=== PATIENT | male | born 1965 | race Two or more races ===

== ENCOUNTER 2018-01-02 15:17 | Inpatient (IN) | payer MEDICAID ==
[~2018-01-02] VITALS: Ht 170.2 cm; Wt 87.0 kg
[~2018-01-02 15:17] MED LIST: ATOR20TA50 PO; HYDR25TA4 PO; LISI10TA6 PO; MET25T PO; NORPTMEDS
[2018-01-02 16:40] LABS: Basophils # (auto) 0.3 uL; Basophils % (auto) 3.3 % (0.0-2.0); Eosinophils # (auto) 0.1 uL; Eosinophils % (auto) 1.2 % (0.0-7.0); Hematocrit 43.8 % (41.0-53.0); Hemoglobin 14.5 g/dL (13.5-17.5); Lymphocytes # (auto) 1.1 uL; Lymphocytes % (auto) 13.9 % (10.0-50.0); Mean Corpuscular Hgb Conc. 33.1 g/dL (32.0-36.0); Mean Corpuscular Volume 87.7 fL (80.0-100.0); Monocytes # (auto) 0.9 uL; Monocytes % (auto) 12.4 % (0.0-12.0); Neutrophils # (auto) 5.3 uL; Neutrophils % (auto) 69.2 % (37.0-80.0); Nucleated Red Blood Cells % 0.1 %; Platelet Count (auto) 251 10^3/uL (140-450); Red Blood Cells 4.99 10^6/uL (4.5-5.90); Red Cell Distribution Width 15.2 % (11.8-14.3); White Blood Cell 7.6 10^3/uL (4.4-10.8)
[2018-01-02 17:02] LABS: Albumin 3.2 g/dL (3.4-5.0); BUN/Creatinine Ratio 15.4; Bilirubin, Total 0.4 mg/dL (0.2-1.0); Calcium 8.7 mg/dL (8.5-10.1); Potassium 4.5 mmol/L (3.5-5.1); Total Protein 7.2 g/dL (6.4-8.2)
[2018-01-03] MEDS ORDERED: FUROSEMIDE 20 MG/2 ML VIAL IV ONE (00:45)
[2018-01-03 01:32] LABS: INR 1.02 (0.9-1.15); Partial Thromboplastin Time 25.7 sec (22.64-33.71); Prothrombin Time 11.1 sec (9.37-12.3)
[2018-01-03] MEDS ORDERED: ONDANSETRON HCL 4 MG/2 ML VIAL IV PRN (02:00)
[2018-01-03] MEDS ORDERED: NITROGLYCERIN 0.4 MG SL TAB SL PRN (02:00)
[2018-01-03] MEDS ORDERED: ACETAMINOPHEN 500 MG TAB PO PRN (02:00)
[2018-01-03] MEDS ORDERED: MORPHINE SULFATE 4 MG/ML SYR/VIAL IV PRN (02:00)
[2018-01-03] MEDS ORDERED: HYDROcodone-ACET 5/325MG TAB PO PRN (02:00)
[2018-01-03 06:37] LABS: Basophils # (auto) 0.1 uL; Basophils % (auto) 2.1 % (0.0-2.0); Eosinophils # (auto) 0.1 uL; Eosinophils % (auto) 1.3 % (0.0-7.0); Hematocrit 45.2 % (41.0-53.0); Hemoglobin 14.8 g/dL (13.5-17.5); Lymphocytes # (auto) 1.5 uL; Lymphocytes % (auto) 22.5 % (10.0-50.0); Mean Corpuscular Hgb Conc. 32.8 g/dL (32.0-36.0); Mean Corpuscular Volume 88.4 fL (80.0-100.0); Monocytes # (auto) 0.7 uL; Monocytes % (auto) 9.8 % (0.0-12.0); Neutrophils # (auto) 4.4 uL; Neutrophils % (auto) 64.3 % (37.0-80.0); Nucleated Red Blood Cells % 0.1 %; Platelet Count (auto) 217 10^3/uL (140-450); Red Blood Cells 5.12 10^6/uL (4.5-5.90); Red Cell Distribution Width 15.1 % (11.8-14.3); White Blood Cell 6.8 10^3/uL (4.4-10.8)
[2018-01-03 06:58] LABS: BUN/Creatinine Ratio 19.8; Calcium 8.9 mg/dL (8.5-10.1); Potassium 4.2 mmol/L (3.5-5.1)
[2018-01-03 08:32] LABS: Urine Bacteria None Seen /hpf (None Seen)
[2018-01-03 09:00] LABS: Urine Blood Normal /uL (Negative); Urine Specific Gravity 1.008 (1.001-1.035)
[2018-01-03] MEDS ORDERED: BUMETANIDE (0.25MG/ML) 4 ML VIAL IV ONE (09:15)
[2018-01-03 09:16] LABS: Urine WBC 0 /hpf (0 - 3)
[2018-01-03] MEDS: FUROSEMIDE 20 MG TAB PO SCH (09:56)
[2018-01-03] MEDS: METOPROLOL TARTRATE 25 MG TAB PO SCH ×2 (09:57→22:20)
[2018-01-03] MEDS: LISINOPRIL 10 MG TAB PO SCH (09:58)
[2018-01-03 13:00] VITALS: BP 152/93
[2018-01-03 17:56] VITALS: BP 154/93
[2018-01-03 20:00] VITALS: BP 151/99
[2018-01-03 22:00] VITALS: BP 151/99
[2018-01-03] MEDS: ATORVASTATIN 20 MG TAB PO SCH (22:18)
[2018-01-04] MEDS ORDERED: ZOLPIDEM TARTRATE 5 MG TAB PO ONE ×2 (01:30→23:40)
[2018-01-04 05:00] VITALS: BP 155/109
[2018-01-04] MEDS: FUROSEMIDE 20 MG TAB PO SCH (08:00)
[2018-01-04] MEDS: LISINOPRIL 10 MG TAB PO SCH (08:00)
[2018-01-04] MEDS: METOPROLOL TARTRATE 25 MG TAB PO SCH ×2 (08:01→22:14)
[2018-01-04 08:13] VITALS: BP 140/103
[2018-01-04] MEDS ORDERED: IODIXANOL 320MG/ML 100ML BTL IV ONE (08:33)
[2018-01-04] MEDS ORDERED: LIDOCAINE 2%HCL (LOCAL ANESTH.) INJ 20ML MDV ONE (08:34)
[2018-01-04] MEDS ORDERED: fentaNYL CITRATE 100 MCG/2 ML VL ONE (08:41)
[2018-01-04] MEDS ORDERED: VERAPAMIL 2.5MG/ML INJ 2ML VIAL IV ONE (08:41)
[2018-01-04] MEDS ORDERED: EPTIFIBATIDE INJ (2MG/ML) 10ML VIAL IV ONE (08:42)
[2018-01-04] MEDS ORDERED: MIDAZOLAM HCL 1MG/1ML-2 ML VIAL ONE (08:42)
[2018-01-04] MEDS ORDERED: IOHEXOL 350 MG/ML 100ML IJ ONE (08:42)
[2018-01-04] MEDS ORDERED: SODIUM CHL 0.9% 50 ML ONE (08:55)
[2018-01-04] MEDS ORDERED: ANGIOMAX 250 MG VIAL IV ONE (08:57)
[2018-01-04 09:00] VITALS: BP 140/103
[2018-01-04] MEDS ORDERED: PRASUGREL HCL 10 MG TAB ONE (09:00)
[2018-01-04] MEDS ORDERED: ASPirin 325 MG TAB ONE (09:00)
[2018-01-04 13:00] VITALS: BP 136/101
[2018-01-04 17:05] VITALS: BP 129/80
[2018-01-04 22:00] VITALS: BP 140/96
[2018-01-04] MEDS: ATORVASTATIN 20 MG TAB PO SCH (22:15)
[2018-01-05 05:30] VITALS: BP 124/86
[2018-01-05] MEDS ORDERED: CLOPIDOGREL 300 MG TAB PO ONE (06:00)
[2018-01-05] MEDS ORDERED: CLOPIDOGREL BISULFATE 75 MG TAB ONE (06:43)
[2018-01-05 08:00] VITALS: BP 138/96
[2018-01-05 09:03] VITALS: BP 138/96
[2018-01-05] MEDS: METOPROLOL TARTRATE 25 MG TAB PO SCH (09:37)
[2018-01-05] MEDS: LISINOPRIL 10 MG TAB PO SCH (09:37)
[2018-01-05] MEDS: FUROSEMIDE 20 MG TAB PO SCH (09:37)
[2018-01-05] MEDS ORDERED: ASPirin 81 mg TAB PO SCH (10:00)
[2018-01-05 10:54] VITALS: BP 138/96
[2018-01-06] MEDS ORDERED: CLOPIDOGREL BISULFATE 75 MG TAB PO SCH (10:00)
== END 2018-01-05 11:35 | disposition home or self-care (01) | DRG 175 ==
LOC: ER 15:18 → TELE 15:19 → TELE-WESTW 01-03 08:44
PROVIDERS: ADMIT Internal Medicine; ATTEND Internal Medicine
PROC: 027034Z Dilation of Coronary Artery, One Artery with Drug-eluting Intraluminal Device, Percutaneous Approach (ICD-10-PCS; principal; 2018-01-04)
PROC: 4A023N7 Measurement of Cardiac Sampling and Pressure, Left Heart, Percutaneous Approach (ICD-10-PCS; 2018-01-04)
PROC: B2111ZZ Fluoroscopy of Multiple Coronary Arteries using Low Osmolar Contrast (ICD-10-PCS; 2018-01-04)
DX: I11.0 Hypertensive heart disease with heart failure (principal); I21.4 Non-ST elevation (NSTEMI) myocardial infarction; I42.9 Cardiomyopathy, unspecified; I50.43 Acute on chronic combined systolic (congestive) and diastolic (congestive) heart failure; N28.9 Disorder of kidney and ureter, unspecified; E78.5 Hyperlipidemia, unspecified; I25.10 Atherosclerotic heart disease of native coronary artery without angina pectoris; M10.9 Gout, unspecified; I73.9 Peripheral vascular disease, unspecified; I49.9 Cardiac arrhythmia, unspecified; Z79.899 Other long term (current) drug therapy; Z79.1 Long term (current) use of non-steroidal anti-inflammatories (NSAID); Z79.2 Long term (current) use of antibiotics
CPT/HCPCS: 36415; 71046; 80048; 80053; 81001; 83880; 84484; 85025; 85379; 85610; 85730; 86850; 86900; 86901; 87081; 92928; 93005; 93458; 96374; 99152; C1874; J2250; Q9967

== ENCOUNTER 2019-01-13 08:07 | Emergency (ER) | payer MEDICAID ==
[~2019-01-13] VITALS: Ht 170.2 cm; Wt 95.3 kg
[~2019-01-13 08:07] MED LIST changes: +ASP81EC PO; +CLOP75TA41 PO; +FURO20TA PO; +LEVO500T21 PO; -LISI10TA6 PO; +LISI2.5T47 PO; -NORPTMEDS
[2019-01-13 08:56] LABS: Basophils # (auto) 0 uL; Basophils % (auto) 0.6 % (0.0-2.0); Eosinophils # (auto) 0.1 uL; Eosinophils % (auto) 1.2 % (0.0-7.0); Hematocrit 40.6 % (41.0-53.0); Lymphocytes % (auto) 15.4 % (10.0-50.0); Mean Corpuscular Hemoglobin 28.7 pg (28.0-32.0); Mean Corpuscular Hgb Conc. 32.2 g/dL (32.0-36.0); Mean Corpuscular Volume 89.1 fL (80.0-100.0); Monocytes # (auto) 0.6 uL; Monocytes % (auto) 8.9 % (0.0-12.0); Neutrophils % (auto) 73.9 % (37.0-80.0); Nucleated Red Blood Cells % 0.2 %; Platelet Count (auto) 230 10^3/uL (140-450); Red Blood Cells 4.55 10^6/uL (4.5-5.90); Red Cell Distribution Width 15.4 % (11.8-14.3); White Blood Cell 6.8 10^3/uL (4.4-10.8)
[2019-01-13] MEDS ORDERED: cloNIDine HCL 0.1 MG TAB PO ONE (09:00)
[2019-01-13 09:02] LABS: Albumin 3.2 g/dL (3.4-5.0); BUN/Creatinine Ratio 20.6; Calcium 8.9 mg/dL (8.5-10.1); Potassium 4.7 mmol/L (3.5-5.1)
[2019-01-13 09:07] LABS: Bilirubin, Total 0.5 mg/dL (0.2-1.0); Total Protein 7.2 g/dL (6.4-8.2)
[2019-01-13 09:59] LABS: Alcohol, Urine < 3.0 mg/dL (0-5); Amphetamine Screen, Urine NEGATIVE (NEGATIVE); Barbiturate Scree,Urine NEGATIVE (NEGATIVE); Benzodiazephine Screen, Urine NEGATIVE (NEGATIVE); Cannabinoid Screen, Urine NEGATIVE (NEGATIVE); Cocaine Screen, Urine NEGATIVE (NEGATIVE); Opiate Scree,Urine NEGATIVE (NEGATIVE); Phencyclidine Screen, Urine NEGATIVE (NEGATIVE)
[2019-01-13 10:00] LABS: Urine Bacteria NONE SEEN /hpf (None Seen); Urine Blood Negative /uL (Negative); Urine Specific Gravity 1.014 (1.001-1.035); Urine WBC 1 /hpf (0 - 3)
[2019-01-13] MEDS ORDERED: amLODIPine BESYLATE 5 MG TAB PO ONE (10:45)
[2019-01-13] MEDS ORDERED: FUROSEMIDE 20 MG/2 ML VIAL IV ONE (10:45)
[2019-01-13 12:26] VITALS: BP 142/82
== END 2019-01-13 12:59 | disposition home or self-care (01) ==
LOC: ER 08:12
DX: I11.0 Hypertensive heart disease with heart failure (principal); R10.84 Generalized abdominal pain; R11.2 Nausea with vomiting, unspecified; K59.00 Constipation, unspecified; I50.9 Heart failure, unspecified; I25.2 Old myocardial infarction; Z98.61 Coronary angioplasty status; Z79.2 Long term (current) use of antibiotics; Z79.82 Long term (current) use of aspirin
CPT/HCPCS: 36415; 71046; 80053; 80307; 81001; 83735; 83880; 84484; 85025; 94761; 96374; 99284; J1940

== ENCOUNTER 2019-01-14 17:14 | Inpatient (IN) | payer MEDICAID ==
[2019-01-14] VITALS (8 sets, daily range): BP systolic 121–136; BP diastolic 83–97
[~2019-01-14] VITALS: Ht 170.2 cm; Wt 95.4 kg
[2019-01-14 17:57] LABS: Basophils # (auto) 0.1 uL; Basophils % (auto) 0.7 % (0.0-2.0); Eosinophils # (auto) 0.1 uL; Eosinophils % (auto) 1.3 % (0.0-7.0); Hematocrit 40.1 % (41.0-53.0); Hemoglobin 13.1 g/dL (13.5-17.5); Lymphocytes # (auto) 1.1 uL; Lymphocytes % (auto) 12.7 % (10.0-50.0); Mean Corpuscular Hemoglobin 28.8 pg (28.0-32.0); Mean Corpuscular Hgb Conc. 32.6 g/dL (32.0-36.0); Mean Corpuscular Volume 88.3 fL (80.0-100.0); Monocytes # (auto) 0.9 uL; Monocytes % (auto) 10.5 % (0.0-12.0); Neutrophils # (auto) 6.3 uL; Neutrophils % (auto) 74.8 % (37.0-80.0); Nucleated Red Blood Cells % 0.2 %; Platelet Count (auto) 221 10^3/uL (140-450); Red Blood Cells 4.55 10^6/uL (4.5-5.90); Red Cell Distribution Width 15.4 % (11.8-14.3); White Blood Cell 8.4 10^3/uL (4.4-10.8)
[2019-01-14 18:14] LABS: Albumin 3.1 g/dL (3.4-5.0); Calcium 8.4 mg/dL (8.5-10.1); Potassium 4.7 mmol/L (3.5-5.1)
[2019-01-14 18:35] LABS: Bilirubin, Total 0.5 mg/dL (0.2-1.0); Total Protein 7.2 g/dL (6.4-8.2)
[2019-01-14] MEDS ORDERED: SODIUM CHLORIDE 0.9% 1,000 ML IV ONE ×2 (19:12→19:30)
[2019-01-14] MEDS ORDERED: ASPirin 81 mg TAB PO ONE ×2 (19:15→19:30)
[2019-01-14] MEDS ORDERED: MORPHINE SULFATE 4 MG/ML SYR/VIAL IV ONE ×2 (19:15→19:30)
[2019-01-14] MEDS ORDERED: ONDANSETRON HCL 4 MG/2 ML VIAL IV ONE (19:30)
[2019-01-14] MEDS ORDERED: NITROGLYCERIN 0.4 MG SL TAB SL ONE (19:30)
[2019-01-14] MEDS ORDERED: HEPARIN IN NS 1000U/500ML (2UNIT/ML) 500 ML BAG/KIT IV ONE (19:45)
[2019-01-14] MEDS ORDERED: HEPARIN SODIUM (PORCINE) 5000 UNITS/ML 1ML VIAL IV ONE (20:00)
[2019-01-14] MEDS ORDERED: ANGIOMAX 250 MG VIAL IV ONE (20:36)
[2019-01-14] MEDS ORDERED: MIDAZOLAM HCL 1MG/1ML-2 ML VIAL ONE (20:36)
[2019-01-14] MEDS ORDERED: SODIUM CHL 0.9% 50 ML ONE (20:36)
[2019-01-14] MEDS ORDERED: fentaNYL CITRATE 100 MCG/2 ML VL ONE (20:36)
[2019-01-14] MEDS ORDERED: IODIXANOL 320MG/ML 100ML BTL IV ONE (20:37)
[2019-01-14] MEDS ORDERED: LIDOCAINE 2%HCL (LOCAL ANESTH.) INJ 20ML MDV ONE (20:37)
[2019-01-14] MEDS ORDERED: ATROPINE SULFATE 1 MG/1 ML VIAL ONE (21:21)
[2019-01-14 21:23] LABS: INR 0.97 (0.9-1.15); Prothrombin Time 10.4 sec (9.27-12.13)
[2019-01-14] MEDS ORDERED: EPTIFIBATIDE INJ (2MG/ML) 10ML VIAL IV ONE (21:37)
[2019-01-14 21:45] LABS: Urine Bacteria NONE SEEN /hpf (None Seen); Urine Blood Negative /uL (Negative); Urine Specific Gravity 1.017 (1.001-1.035); Urine WBC <1 /hpf (0 - 3)
[2019-01-14] MEDS ORDERED: TICAGRELOR 90 MG TAB ONE (21:45)
[2019-01-14] MEDS ORDERED: ATORVASTATIN 20 MG TAB PO ONE (22:15)
[2019-01-14] MEDS ORDERED: NITROGLYCERIN 0.4 MG SL TAB SL PRN (22:15)
[2019-01-14] MEDS ORDERED: MORPHINE SULF INJ 2 MG/ML SYRINGE 1ML IV PRN ×2 (22:15)
[2019-01-14 22:45] LABS: Alcohol, Urine < 3.0 mg/dL (0-5); Amphetamine Screen, Urine NEGATIVE (NEGATIVE); Barbiturate Scree,Urine NEGATIVE (NEGATIVE); Benzodiazephine Screen, Urine NEGATIVE (NEGATIVE); Cannabinoid Screen, Urine NEGATIVE (NEGATIVE); Cocaine Screen, Urine NEGATIVE (NEGATIVE); Opiate Scree,Urine POSITIVE (NEGATIVE); Phencyclidine Screen, Urine NEGATIVE (NEGATIVE)
[2019-01-14] MEDS ORDERED: FUROSEMIDE 20 MG/2 ML VIAL IV ONE (23:00)
--- NOTE | 2019-01-14 23:05 | NUR ---
ARRIVAL NOTE PT ARRIVED TO ICU AT 2210. PT PLACED IN ROOM 106. PT ARRIVED FROM FORKLIFT DRIVER. PT ABLE TO STATE NAME, , PLACE OF RESIDENCE. PT DROWSY AT THIS TIME. VS OR ARRIVAL, TEMP 98.3, HR 90, RR 22, 95% O2, BP 135/97. ANGIO SEAL SITE SOFT TO TOUCH, NO BLEEDING NOTED. PT INSTRUCTED TO KEEP LEG STRAIGHT AT THIS TIME. PT ARRIVED WITH LFT HAND 20 GAUGE, RT AC 20 GAUGE. BOTH IV SITES BENIGN. PT PLACED ON 2 LTS NC. PT PLACED IN REVERSE [place] PER ASPIRATION PRECAUTIONS. PT DENIES PAIN AT THIS TIME. WILL MONITOR PT CAREFULLY. Addendum: 01/14/19 at 2334 by SILVINA BOWMAN RN PT HAS PITTING EDEMA 1+ ON LOWER EXTREMITIES
--- NOTE | 2019-01-14 23:11 | NUR ---
PT'S BROTHER, ERIC, CALLED AT THIS TIME REQUESTING UPDATE ON PT STATUS. PER PT TELL ANYONE THAT CALLS THAT HE IS DOING OK BUT DO NOT GIVE OUT ANY INFORMATION. PT WILL CALL FAMILY TOMORROW. PT DOES NOT WANT TO MAKE A PASSWORD AT THIS TIME.
[2019-01-15] VITALS (31 sets, daily range): BP systolic 111–168; BP diastolic 76–124
--- NOTE | 2019-01-15 01:57 | NUR ---
PERSONAL AFFECTS PT ARRIVED TO UNIT WITH JACKET AND TWO PLASTIC BAGS. IN THE BAGS ARE A CELL PHONE WITH CLAIM EXAMINER AND EAR BUDS. 1 PAIR OF SHOES, 2 SOCKS, SHORTS WITH A BELT. BOXERS, SHIRT. PAPERWORK AND 3$ IN POCKET OF JACKET.
--- NOTE | 2019-01-15 03:12 | NUR ---
PT REMAINS SUPINE IN RE[place]SE [place] POSITION X6 HOURS POST SKILLS TRAINER. ANGIO SEAL SITE REMAINS BENIGN AND SOFT. NO BLEEDING NOTED.
--- NOTE | 2019-01-15 04:10 | NUR ---
PT ASSISTED TO BEDSIDE COMMODE. PT HAD LARGE BM. PT RETURNED TO BED AND HOOKED UP TO ICU MONITOR. PT TOLERATED WELL. VSS.
--- NOTE | 2019-01-15 07:45 | NUR ---
ASSESS- PT. LYING IN BED WITH EYES CLOSED, AROUSABLE TO NAME. ALERT AND ORIENTED TIMES FOUR. DENIES ANY PAIN OR DISCOMFORT. NO C/P. RT. GROIN WITH ANGIOSEAL INTACT, NO HEMATOMA, NO BRUISING, NO BLEEDING. LUNGS CLEAR RAMIREZ. INSPIRATORY AND EXPIRATORY. NO SOB. O2 2L N/C. RADIAL PULSES STRONG, PALPABLE RAMIREZ. PEDAL PULSES STRONG, PALPABLE RAMIREZ. 1 PLUS EDEMA ANKLES RAMIREZ. ABD. SOFT, FLAT, NON-TENDER. BOWEL SOUNDS ALL FOUR QUADRANTS. NO N/V. VOIDS VIA URINAL CLEAR YELLOW URINAL WITHOUT DIFFICULTY.
[2019-01-15] MEDS ORDERED: CLOPIDOGREL BISULFATE 75 MG TAB PO ONE (09:00)
--- NOTE | 2019-01-15 09:30 | NUR ---
PT. ASSISTED TO TOILET. STEADY GAIT. PT. STATED HE HAD BM. SAT UP IN CHAIR FOR 15-20 MIN. THEN WANTED TO GO BACK TO BED. TOLERATED WELL.
[2019-01-15] MEDS ORDERED: NITROGLYCERIN 0.4 MG SL TAB SL ONE (10:00)
[2019-01-15] MEDS ORDERED: ASPirin 81 mg TAB PO ONE (10:00)
--- NOTE | 2019-01-15 10:00 | NUR ---
VISITORS AT THE .
--- NOTE | 2019-01-15 11:40 | NUR ---
DR. SETHI Provider/Hospitalist at bedside. NEW ORDERS RECEIVED.
--- NOTE | 2019-01-15 13:15 | NUR ---
DR. CARPENTER Provider/Hospitalist at bedside. NEW ORDERS RECEIVED.
[2019-01-15 14:22] LABS: Cholesterol 117 mg/dL (< 200); HDL Cholesterol 32 mg/dL (40-59); LDL Cholesterol 85 mg/dL (< 100); Triglycerides 81 mg/dL (< 150)
--- NOTE | 2019-01-15 14:30 | NUR ---
NO C/P OR DISCOMFORT. PT. RESTING IN BED.
--- NOTE | 2019-01-15 15:43 | NUR ---
Called/paged Dr. CARPENTER called re: . Waiting for call back. Continue care.
[2019-01-15] MEDS ORDERED: ONDANSETRON HCL 4 MG/2 ML VIAL ONE (15:49)
--- NOTE | 2019-01-15 15:57 | NUR ---
returned call Dr. CARPENTER returned call, updated on patient status and reason for call, orders received. Continue care.
--- NOTE | 2019-01-15 15:59 | NUR ---
PT. HAVING NAUSEA, NO EMESIS. MED. WITH ZOFRAN 4MG. IVP.
[2019-01-15] MEDS ORDERED: ONDANSETRON HCL 4 MG/2 ML VIAL IV PRN (16:00)
--- NOTE | 2019-01-15 16:25 | NUR ---
PT. NO LONGER NAUSEATED.
--- NOTE | 2019-01-15 18:25 | NUR ---
PT. TRANSFERRED TO RM. 287-B VIA W/C ON R/A, TELE #[id number]. BELONGINGS WITH PT. REPORT GIVEN TO ANIA ROBERSON.
--- NOTE | 2019-01-15 18:35 | NUR ---
Received patient from ICU Assumed care of patient, awake and alert. No S/S of distress/SOB or pain. Instructed on POC and to call for assist PRN, will continue to monitor for changes Q1hr and PRN.
--- NOTE | 2019-01-15 18:51 | NUR ---
Spoke with Dr. Conte regarding blood pressure. New orders received. Orders read back and verified by .
--- NOTE | 2019-01-15 19:21 | NUR ---
Change of shift given to casino shift manager RN. No distress noted.
[2019-01-15] MEDS: METOPROLOL TARTRATE 25 MG TAB PO SCH ×2 (19:23→22:00)
[2019-01-15] MEDS: LISINOPRIL 10 MG TAB PO SCH ×2 (19:23→22:59)
[2019-01-15] MEDS: hydrALAZINE HCL 25 MG TAB PO SCH ×2 (19:23→22:58)
--- NOTE | 2019-01-15 19:39 | NUR ---
OPENING NOTES RECEIVED REPORT FROM DAY SHIFT NURSE. PT IS A/OX4 WITH NO S/S OF DISTRESS NOR PAIN. BED IS IN LOWEST POSITION WITH SIDE RAILS UP X 2. BED BRAKES ARE LOCKED AND CALL LIGHT IS WITH IN REACH. HOB IS 30 DEGREES. DISCUSSED POC WITH PATIENT AND PATIENT VERBALIZED UNDERSTANDING.
[2019-01-15] MEDS ORDERED: ATORVASTATIN 20 MG TAB PO SCH (22:00)
[2019-01-15] MEDS ORDERED: METOPROLOL TARTRATE 25 MG TAB PO SCH (22:00)
--- NOTE | 2019-01-15 22:41 | NUR ---
PAIN PATIENT CLAIMS 4/10 PAIN IN THE ABDOMEN. ABDOMEN IS DISTENDED. PT PASSES GAS AND CLAIMS TO FEEL BETTER, ADVISED PATIENT TO AMBULATE DURING DAY SHIFT.
[2019-01-16 05:27] VITALS: BP 148/95
--- NOTE | 2019-01-16 07:08 | NUR ---
Opening Shift Note Assumed care of patient, awake and alert. No S/S of distress/SOB or pain. Instructed on POC and to call for assist PRN, will continue to monitor for changes Q1hr and PRN.
--- NOTE | 2019-01-16 07:32 | NUR ---
ENDORSED CARE TO DAY SHIFT NURSEKAROL.
[2019-01-16 08:12] VITALS: BP 144/94
[2019-01-16 09:00] VITALS: BP 144/94
[2019-01-16] MEDS: LISINOPRIL 10 MG TAB PO SCH (09:30)
[2019-01-16] MEDS: METOPROLOL TARTRATE 25 MG TAB PO SCH (09:31)
[2019-01-16] MEDS: hydrALAZINE HCL 25 MG TAB PO SCH (09:31)
[2019-01-16] MEDS ORDERED: LISINOPRIL 5 MG TAB PO SCH (10:00)
[2019-01-16] MEDS ORDERED: ASPirin 81 mg TAB PO SCH (10:00)
[2019-01-16] MEDS ORDERED: ASPirin-EC 81 mg tab PO SCH (10:00)
[2019-01-16] MEDS ORDERED: CLOPIDOGREL BISULFATE 75 MG TAB PO SCH ×2 (10:00)
[2019-01-16 13:00] VITALS: BP 124/88
== END 2019-01-16 16:20 | disposition home or self-care (01) | DRG 174 ==
LOC: ER 17:14 → ICU WEST 22:09 → TELE-WESTW 01-15 18:27
PROVIDERS: ADMIT Psychiatry & Neurology Psychiatry; ATTEND Hospitalist
PROC: 027034Z Dilation of Coronary Artery, One Artery with Drug-eluting Intraluminal Device, Percutaneous Approach (ICD-10-PCS; principal; 2019-01-14)
PROC: 02C03ZZ Extirpation of Matter from Coronary Artery, One Artery, Percutaneous Approach (ICD-10-PCS; 2019-01-14)
PROC: 4A023N7 Measurement of Cardiac Sampling and Pressure, Left Heart, Percutaneous Approach (ICD-10-PCS; 2019-01-14)
PROC: B2111ZZ Fluoroscopy of Multiple Coronary Arteries using Low Osmolar Contrast (ICD-10-PCS; 2019-01-14)
DX: I21.4 Non-ST elevation (NSTEMI) myocardial infarction (principal); K85.90 Acute pancreatitis without necrosis or infection, unspecified; I42.0 Dilated cardiomyopathy; E66.01 Morbid (severe) obesity due to excess calories; I50.9 Heart failure, unspecified; I11.0 Hypertensive heart disease with heart failure; I25.10 Atherosclerotic heart disease of native coronary artery without angina pectoris; F15.90 Other stimulant use, unspecified, uncomplicated; E11.9 Type 2 diabetes mellitus without complications; Z68.32 Body mass index [BMI] 32.0-32.9, adult; I25.2 Old myocardial infarction; Z82.49 Family history of ischemic heart disease and other diseases of the circulatory system; Z91.19 Patient's noncompliance with other medical treatment and regimen; Z91.14 Patient's other noncompliance with medication regimen; Z95.5 Presence of coronary angioplasty implant and graft; Z79.84 Long term (current) use of oral hypoglycemic drugs
CPT/HCPCS: 36415; 71046; 74018; 80053; 80061; 80307; 81001; 83036; 83690; 83880; 84484; 85025; 85610; 86850; 86900; 86901; 87081; 93005; 96361; 96374; G0378; J0461; J2250; J2405; Q9967

== ENCOUNTER 2019-05-11 22:27 | Inpatient (IN) | payer MEDICAID | END 2019-05-12 15:40 | disposition home or self-care (01) | LOC: ER 22:27 → TELE 22:28 → TELE-CENTR 05-12 06:03 | DX: I25.119 Atherosclerotic heart disease of native coronary artery with unspecified angina pectoris (principal); I11.0 Hypertensive heart disease with heart failure; I50.9 Heart failure, unspecified; E11.9 Type 2 diabetes mellitus without complications; I34.2 Nonrheumatic mitral (valve) stenosis; I35.0 Nonrheumatic aortic (valve) stenosis ==